=== PATIENT | female | born 1970 | race African-American/Black ===

== ENCOUNTER 2021-05-22 14:14 | Observation (INO) ==
[2021-05-22] MEDS ORDERED: ALUMINUM/MAGNES/SIMETH MAX STR 30 ML UDCUP PO PRN (14:37)
[2021-05-22] MEDS ORDERED: MORPHINE 2 MG/1 ML SYRINGE IV PRN (14:37)
[2021-05-22] MEDS ORDERED: diphenhydrAMINE CAP 25 MG CAPSULE PO PRN (14:37)
[2021-05-22] MEDS ORDERED: SIMETHICONE CHEW 125 MG TABLET PO PRN (14:37)
[2021-05-22] MEDS ORDERED: guaiFENesin/DM ER 600-30 MG TABLET PO PRN (14:37)
[2021-05-22] MEDS ORDERED: hydrALAZINE 20 MG/1 ML VIAL IV PRN (14:37)
[2021-05-22] MEDS ORDERED: ZALEPLON 5 MG CAPSULE PO PRN (14:37)
[2021-05-22] MEDS ORDERED: LACTULOSE 20 GM/30 ML UDCUP PO PRN (14:37)
[2021-05-22] MEDS ORDERED: ONDANSETRON 4 MG/2 ML VIAL IV PRN (14:37)
[2021-05-22] MEDS ORDERED: ACETAMINOPHEN 325 MG TABLET PO PRN (14:37)
[2021-05-22] MEDS ORDERED: BISACODYL 5 MG TABLET PO PRN (14:37)
[2021-05-22] MEDS ORDERED: CALCIUM CARBONATE CHEW 500 MG TABLET PO PRN (14:37)
[2021-05-22] MEDS ORDERED: clonazePAM 0.5 MG TABLET PO PRN (14:42)
[2021-05-22] MEDS ORDERED: INFLUENZA VIRUS VACCINE 0.5 ML SYRINGE IM ONE (16:47)
[2021-05-22] MEDS ORDERED: ENOXAPARIN 80 MG/0.8 ML SYRINGE SUBCUT ONE (17:26)
[2021-05-22] MEDS ORDERED: KETOROLAC 30 MG/1 ML VIAL IV ONE (17:26)
[2021-05-22] MEDS: GABAPENTIN 100 MG CAPSULE PO SCH ×2 (17:58→21:35)
[2021-05-22] MEDS: NITROGLYCERIN 2% OINT 1 INCH/GM PACK TOP SCH ×2 (17:59→23:42)
[2021-05-22] MEDS ORDERED: ENOXAPARIN 40 MG/0.4 ML SYRINGE SUBCUT SCH (21:00)
[2021-05-22] MEDS ORDERED: CITALOPRAM 20 MG TABLET PO SCH (21:00)
[2021-05-22] MEDS: ASCORBIC ACID 500 MG TABLET PO SCH (21:35)
[2021-05-23 05:36] LABS: Basophils % 0.7 % (0.0-0.8); Eosinophils # 0.1 10*3/uL (0.0-0.87); Eosinophils % 2.3 % (0.00-10.9); Hematocrit 39.5 VOL% (35.7-47.0); Hemoglobin 12.3 GM/DL (12.0-16.0); Immature Granulocytes % 0.2 %; Immature Granulocytes Absolute 0.01 #; Lymphocytes # 2.9 10*3/uL (1.4-4.0); Lymphocytes % 51.9 % (21.3-54.2); Mean Corpuscular HGB Conc 31.1 GM/DL (32-36); Mean Corpuscular Volume 92.1 FL (87-102); Mean Platelet Volume 12.5 FL (9.6-12.0); Neutrophils % 33.9 % (38.7-73.9); Platelet Count 165 T/CUMM (130-400); Red Blood Count 4.29 MC/CUMM (3.8-5.5); Red Cell Distribution Width 13.3 % (9.3-17.3); White Blood Count 5.7 T/CUMM (4-12)
[2021-05-23] MEDS: NITROGLYCERIN 2% OINT 1 INCH/GM PACK TOP SCH (05:57)
[2021-05-23 06:04] LABS: Blood Urea Nitrogen 7 MG/DL (7-18); Calcium 8.8 MG/DL (8.5-10.1); Carbon Dioxide 30 MMOL/L (21-32); Eosinophils 2 % (0-10); Estimated Glom Filtration Rate 84 ML/MIN; Glucose 100 MG/DL (74-106); HDL Cholesterol 58 MG/DL (40-60); Lymphocytes 43 % (20-55); Nucleated Red Blood Cells 1 (0-5); Osmolality,Calculated 278.3 MOS/KG (273-304); Platelet Estimate Normal; Potassium 3.8 MMOL/L (3.5-5.1); Risk Ratio 2.95; Segmented Neutrophils 39 % (50-85); Sodium 141 MMOL/L (136-145); Total Cells Counted 100; Triglycerides 113 MG/DL (2-150); VLDL Cholesterol 22.6 MG/DL
[2021-05-23] MEDS ORDERED: LEVOTHYROXINE 88 MCG TABLET PO SCH (06:30)
[2021-05-23 07:50] VITALS: BP 136/63
[2021-05-23] MEDS: ASCORBIC ACID 500 MG TABLET PO SCH (08:16)
[2021-05-23] MEDS: GABAPENTIN 100 MG CAPSULE PO SCH (08:16)
[2021-05-23] MEDS ORDERED: PANTOPRAZOLE 40 MG TABLET PO SCH (09:00)
[2021-05-23] MEDS ORDERED: amLODIPine 5 MG TABLET PO SCH (09:00)
[2021-05-23] MEDS ORDERED: ASPIRIN EC 81 MG TABLET PO SCH (09:00)
== END 2021-05-23 11:26 | disposition home or self-care (01) ==
LOC: N.5E
PROVIDERS: ADMIT Internal Medicine Cardiovascular Disease; ATTEND Internal Medicine Cardiovascular Disease